=== PATIENT | female | born 1990 | race Caucasian/White ===

== ENCOUNTER 2025-05-25 17:58 | Emergency (ER) | payer OTHER, SELFPAY ==
--- NOTE | 2025-05-25 18:00 | ED_ITS ---
HPI - General Adult General Chief complaint: Urogenital-Female Stated complaint: Uti Symptoms Time Seen by Provider: 05/25/25 18:00 Source: patient Mode of arrival: ambulatory Limitations: no limitations History of Present Illness HPI narrative: No 34-year-old female patient presents to the [facility] with complaints of urinary symptoms that started on Monday evening. Patient states that she was recently treated for UTI back in her hometown of [place] and took some Bactrim and completed the entire course. Patient states she flew here on Monday started having symptoms Monday evening and all day yesterday started having burning with urination and pain and frequency. Related Data Home Medications ?Medication ?Instructions ?Recorded ?Confirmed ?Last Taken ?Type bupropion HCl 300 mg 24 hr tablet, mg PO 05/25/25 Unk nown History extended release ibuprofen 800 mg tablet mg 05/25/25 Unknown History prednisolone acetate 1 % eye drp 05/25/25 Unknown His tory drops,suspension sulfamethoxazole 800 tablet 05/25/25 Unknown His tory mg-trimethoprim 160 mg tablet Allergies Allergy/AdvReac Type Severity Reaction Status Date / Time No Known Allergies Allergy Verified 05/25/25 18:21 Review of Systems Review of Systems: CONSTITUTIONAL: Denies fever, chills, or sweats. EYES: Denies visual changes, redness, or discharge. ENT: Denies rhinorrhea, congestion, sore throat, or otalgia. CARDIOVASCULAR: Denies chest pain, palpitations, or edema. RESPIRATORY: Denies cough or dyspnea. GASTROINTESTINAL: Denies abdominal pain, nausea, vomiting, or diarrhea. GENITOURINARY: Positive dysuria denies hematuria. SKIN: Denies rash or itching. MUSCULOSKELETAL: Denies back pain, joint pain, or myalgia. NEUROLOGIC: Denies headache, numbness, or weakness. PSYCHIATRIC: Denies anxiety or depression. [facility] Past Medical History Medical History (Updated 05/25/25 @ 18:29 by Alison Giron APRN) UTI (urinary tract infection) due to Enterococcus Comments At the time of my signature I agree with nursing past medical history, surgical, social, and family history. There is no relevant family history pertinent to the presenting complaint. Exam Narrative: GENERAL: Well-appearing, well-nourished, and in no acute distress. HEAD: Normocephalic, atraumatic. EYES: PERRLA and EOMI. ENT: Nares clear, no rhinorrhea or epistaxis. Mucous membranes moist. posterior pharynx with no erythema, tonsillar enlargement, exudates or lesions present. Bilateral TMs are clear no erythema foreign bodies canal. NECK: Supple. No lymphadenopathy CHEST: Clear to auscultation. No respiratory distress. HEART: Regular rate and rhythm. No murmur heard. Normal peripheral pulses. ABDOMEN: Soft, nontender, nondistended, normal active bowel sounds. No CVA tenderness on percussion EXTREMITIES: Normal range of motion. No edema. SKIN: Warm, dry, no rash. NEURO: No focal deficits. Alert and oriented x3. Course Course Level of Care: Express Care Visit Vital Signs Vital signs: Vital signs reviewed. Medical Decision Making MDM Narrative Medical decision making narrative: plan care patient is discharged home with oral antibiotic since she did recently have an infection and her symptoms returned right after her antibiotics have been completed. Unable to do urine dip today due to AZO intake. Differential Diagnosis Differential Diagnosis: Differential diagnosis: Uncomplicated lower UTI, uncomplicated UTI, pyelonephritis Critical Care Time Critical Care Time Critical Care Time: No Discharge Plan Discharge Clinical Impression: Urinary tract infection Patient Disposition: Home Condition: Stable Instructions: Antibiotic Form, Urinary Tract Infection in Women (ED) Additional Instructions: We will send a urine culture off to the lab; if the culture identifies an organism that the prescribed antibiotic will not treat, you will receive a phone call from an urgent care staff member and an appropriate antibiotic will be prescribed. -Your symptoms should begin to improve within a day of starting antibiotics. But you should finish all the antibiotic pills you get. Otherwise your infection might come back. -Also recommend: drink more fluid. It might help flush out germs, and it does no harm -Tylenol/ibuprofen prn for pain or fever -Follow-up with your primary care provider for urine recheck or seek ER visit if condition worsens with high fever, nausea, vomiting and severe back pain. Patient Language: [place] Prescriptions: New cephalexin 500 mg capsule 500 mg PO Q12H 10 Days Qty: 20 0RF No Action ibuprofen 800 mg tablet sulfamethoxazole-trimethoprim 800-160 mg tablet prednisolone acetate 1 % drops,suspension bupropion HCl 300 mg tablet extended release 24 hr PO Follow-up/Referrals: UNKNOWN,DOCTOR [Non-Staff] Time of Disposition: 18:23
[2025-05-25 18:09] VITALS: BP 126/82; PULSE 88; RESP 16; TEMP 36.9; O2SAT 98
[2025-05-25 18:32] LABS: BEDSIDEPREGUCG Negative (Negative)
[2025-05-25 18:33] LABS: BEDSIDEPREGUCG Negative (Negative)
== END 2025-05-25 18:27 | disposition home or self-care (01) ==
PROVIDERS: Emergency Provider Nurse Practitioner Family
DX: N39.0 Urinary tract infection, site not specified (principal)
CPT/HCPCS: 81025; 87086; 99213; G0463